=== PATIENT | male | born 2000 | race Two or more races ===

== ENCOUNTER 2020-05-20 09:32 | Emergency (ER) | payer OTHER ==
[~2020-05-20] VITALS: Ht 175.3 cm; Wt 127.0 kg
[2020-05-20] MEDS ORDERED: ONDANSETRON ODT4 MG SL (14:30)
[2020-05-20] MEDS ORDERED: PEPCID AC20 MG PO (14:30)
== END 2020-05-20 14:50 | disposition home or self-care (01) ==
LOC: ER 09:32
DX: B34.9 Viral infection, unspecified (principal); A90 Dengue fever [classical dengue]; R50.9 Fever, unspecified; Z20.828 Contact with and (suspected) exposure to other viral communicable diseases

== ENCOUNTER 2021-05-15 16:17 | Outpatient (CLI) | payer OTHER ==
[~2021-05-15 16:17] MED LIST: ONDANSETRON ODT4 MG SL; PEPCID AC20 MG PO
== END 2021-05-15 16:22 | disposition home or self-care (01) ==
LOC: LAB 16:17
DX: Z20.818 Contact with and (suspected) exposure to other bacterial communicable diseases (principal); Z20.828 Contact with and (suspected) exposure to other viral communicable diseases